=== PATIENT | female | born 1990 | race Caucasian/White ===

== ENCOUNTER 2017-12-01 14:38 | Outpatient (REF) | payer OTHER, SELFPAY ==
[2017-12-01 22:05] LABS: Anion Gap 7.5 mmol/L (3-11); CO2 31.5 mmol/L (21.0-32.0); Chloride 99 mmol/L (98-107); Cholesterol 170 mg/dL (50-200); HDL Cholesterol 66 mg/dL (40-60); LDL CHOLESTEROL 91 mg/dL (<100); Potassium 4.5 mmol/L (3.5-5.1); Sodium 138 mmol/L (136-145); Triglyceride 109 mg/dL (30-150)
[2017-12-02 17:30] LABS: Estradiol 187 pg/ml
== END 2017-12-01 14:58 ==
LOC: NCHCN 14:38
PROVIDERS: PCP Nurse Practitioner Family; Visit Provider Nurse Practitioner Family
DX: Z87.890 Personal history of sex reassignment (principal); Z13.220 Encounter for screening for lipoid disorders
CPT/HCPCS: 80051; 80061; 83721; 82670

== ENCOUNTER 2018-04-19 12:28 | Outpatient (REF) | payer OTHER, SELFPAY ==
[2018-04-19 22:32] LABS: ALT 14 U/L (12-78); AST 15 U/L (15-37); Albumin 3.9 g/dL (3.4-5.0); Alkaline Phosphatase 44 U/L (46-116); Anion Gap 6.9 mmol/L (3-11); BUN 11 mg/dL (7-18); Bilirubin, Total 0.4 mg/dL (0.2-1.0); CO2 32.1 mmol/L (21.0-32.0); CREATININE 0.91 mg/dL (0.55-1.02); Calcium 9.6 mg/dL (8.5-10.1); Chloride 101 mmol/L (98-107); Glucose 87 mg/dL (70-100); Potassium 4.7 mmol/L (3.5-5.1); Sodium 140 mmol/L (136-145); TSH 1.47 uIU/mL (0.358-3.74); Total Protein 7.5 g/dL (6.4-8.2)
[2018-04-20 19:40] LABS: Estradiol 241 pg/ml
[2018-04-21 09:36] LABS: Prolactin 17.9 ng/ml
[2018-04-22 12:08] LABS: Testosterone, Total <7.0 ng/dL (8-60)
== END 2018-04-19 12:48 ==
LOC: NCHCN 12:28
PROVIDERS: PCP Nurse Practitioner Family; Visit Provider Nurse Practitioner Family
DX: R63.4 Abnormal weight loss (principal); F41.8 Other specified anxiety disorders; Z87.890 Personal history of sex reassignment
CPT/HCPCS: 80053; 84403; 82670; 84146; 84443

== ENCOUNTER 2018-11-26 10:26 | Outpatient (REF) | payer OTHER, SELFPAY ==
[2018-11-26 21:31] LABS: Abs Immature Grans 0.02 k/cumm (0.0-0.09); Absolute Basophil Count 0.05 k/cumm (0.0-0.2); Absolute Eosinophil Count 0.32 k/cumm (0.0-0.7); Absolute Monocyte Count 0.44 k/cumm (0.11-0.7); Absolute Neutrophil Count 3.18 k/cumm (1.2-6.7); Basophils % 0.8; Eosinophils % 5.3; HGB 12.7 g/dL (12.0-15.5); Immature Grans % 0.3; Lymphocytes % 33.3; Mean Corp. HGB Concentration 33.4 g/dL (32.0-36.0); Mean Corpuscular Hemoglobin 28.7 pg (27.0-33.0); Monocytes % 7.3; Platelet Count 275 x1000/uL (130-400); RBC 4.42 m/cumm (4.00-5.20); RBC Distribution Width 12.1 % (11.7-14.6); White Blood Cell Count 6.01 k/cumm (4.4-10.8)
[2018-11-26 22:21] LABS: ALT 14 U/L (14-59); AST 11 U/L (15-37); Albumin 3.6 g/dL (3.4-5.0); Alkaline Phosphatase 38 U/L (46-116); Anion Gap 5.7 mmol/L (3-11); BUN 9 mg/dL (7-18); Bilirubin, Total 0.3 mg/dL (0.2-1.0); CO2 29.3 mmol/L (21.0-32.0); CREATININE 0.84 mg/dL (0.55-1.02); Calcium 8.6 mg/dL (8.5-10.1); Chloride 105 mmol/L (98-107); Glucose 77 mg/dL (70-100); Potassium 3.9 mmol/L (3.5-5.1); Sodium 140 mmol/L (136-145); TSH (W/Ref FT4) 1.46 uIU/mL (0.36-3.74); Total Protein 6.2 g/dL (6.4-8.2); Vitamin B12 616 pg/mL (193-986)
[2018-11-29 09:25] LABS: Vitamin D 25 Total 35.8 ng/ml (30-100)
== END 2018-11-26 10:46 ==
LOC: NCHCN 10:26
PROVIDERS: PCP Nurse Practitioner Family; Visit Provider Nurse Practitioner Family
DX: F41.8 Other specified anxiety disorders (principal); R45.851 Suicidal ideations; Z87.890 Personal history of sex reassignment; Z72.89 Other problems related to lifestyle
CPT/HCPCS: 80053; 82306; 82607; 84443; 85025

== ENCOUNTER 2019-04-28 14:02 | Outpatient (REF) | payer OTHER, SELFPAY ==
[2019-04-29 16:47] LABS: Estradiol 198 pg/mL (See Note)
[2019-05-03 07:58] LABS: Testosterone, Total <7.0 ng/dL (8-60)
== END 2019-04-28 14:22 ==
LOC: NCHCN 14:02
PROVIDERS: PCP Nurse Practitioner Family; Visit Provider Nurse Practitioner Family
DX: N18.6 End stage renal disease (principal); Z87.890 Personal history of sex reassignment
CPT/HCPCS: 84403; 82670

== ENCOUNTER 2019-10-04 17:28 | Outpatient (REF) | payer MEDICAID, SELFPAY ==
[2019-10-04 21:02] LABS: Anion Gap 8.8 mmol/L (3-11); BUN 13 mg/dL (7-18); CO2 27.2 mmol/L (21.0-32.0); Chloride 101 mmol/L (98-107); Glucose 102 mg/dL (74-106); Potassium 4.3 mmol/L (3.5-5.1); Sodium 137 mmol/L (136-145)
[2019-10-05 17:04] LABS: Estradiol 189 pg/mL (See Note)
[2019-10-07 15:53] LABS: Testosterone, Free 0.08 ng/dL (0.06-1.03); Testosterone, Total 7.7 ng/dL (8-60)
== END 2019-10-04 17:48 ==
LOC: NCHCN 17:28
PROVIDERS: PCP Nurse Practitioner Family; Visit Provider Nurse Practitioner Family
DX: Z87.890 Personal history of sex reassignment (principal)
CPT/HCPCS: 80048; 84402; 84403; 82670

== ENCOUNTER 2020-11-08 09:21 | Outpatient (REF) | payer OTHER, SELFPAY ==
[2020-11-08 17:38] LABS: Anion Gap 6.9 mmol/L (3-11); BUN 16 mg/dL (7-18); CO2 30.1 mmol/L (21.0-32.0); CREATININE 0.8 mg/dL (0.55-1.02); Chloride 105 mmol/L (98-107); Glucose 62 mg/dL (74-106); Potassium 4.1 mmol/L (3.5-5.1); Sodium 142 mmol/L (136-145)
[2020-11-09 16:56] LABS: Estradiol 210 pg/mL (See Note)
[2020-11-16 08:51] LABS: Testosterone, Total <7.0 ng/dL (8-60)
== END 2020-11-08 09:22 | disposition home or self-care (01) ==
LOC: NCHCN 09:21
PROVIDERS: PCP Nurse Practitioner Family; Referring Provider Nurse Practitioner Family; Visit Provider Nurse Practitioner Family
DX: F31.81 Bipolar II disorder (principal); Z87.890 Personal history of sex reassignment
CPT/HCPCS: 80048; 84402; 84403; 82670

== ENCOUNTER 2021-05-06 21:35 | Outpatient (REF) | payer OTHER, SELFPAY ==
[2021-05-06 22:06] LABS: Anion Gap 1.2 mmol/L (3-11); BUN 13 mg/dL (7-18); CO2 27.8 mmol/L (21.0-32.0); CREATININE 0.8 mg/dL (0.55-1.02); Calcium 8.7 mg/dL (8.5-10.1); Chloride 98 mmol/L (98-107); Glucose 85 mg/dL (74-106); Potassium 3.3 mmol/L (3.5-5.1); Sodium 127 mmol/L (136-145)
[2021-05-07 18:47] LABS: Estradiol 154 pg/mL (See Note)
[2021-05-10 15:56] LABS: Testosterone, Total <7.0 ng/dL (8-60)
== END 2021-05-06 21:36 | disposition home or self-care (01) ==
LOC: NCHCN 21:35
PROVIDERS: PCP Nurse Practitioner Family; Visit Provider Nurse Practitioner Family
DX: Z87.890 Personal history of sex reassignment (principal)
CPT/HCPCS: 80048; 84402; 84403; 82670

== ENCOUNTER 2021-07-18 19:24 | Outpatient (REF) | payer OTHER, SELFPAY ==
[2021-07-18 21:08] LABS: Anion Gap 5.1 mmol/L (3-11); BUN 18 mg/dL (7-18); CO2 28.9 mmol/L (21.0-32.0); CREATININE 0.8 mg/dL (0.55-1.02); Chloride 104 mmol/L (98-107); Glucose 69 mg/dL (74-106); Potassium 4.5 mmol/L (3.5-5.1); Sodium 138 mmol/L (136-145)
== END 2021-07-18 19:25 | disposition home or self-care (01) ==
LOC: NCHCN 19:24
PROVIDERS: PCP Nurse Practitioner Family; Visit Provider Nurse Practitioner Family
DX: Z86.39 Personal history of other endocrine, nutritional and metabolic disease (principal)
CPT/HCPCS: 80048

== ENCOUNTER 2022-09-01 10:58 | Outpatient (REF) | payer OTHER, SELFPAY ==
[2022-09-01 15:18] LABS: HCT 41.3 % (36.0-46.0); HGB 13.7 g/dL (11.2-15.7); MCH 28.5 pg (27.0-33.0); MCHC 33.2 % (32.0-36.0); MCV 86 fL (80-95); MPV 10.5 fL (8.0-11.0); Platelet Count 283 10^3/uL (130-400); RBC 4.81 10^6/uL (3.93-5.22); RDW-SD 37.8 fL; WBC 9.79 10^3/uL (4.4-10.8)
[2022-09-01 15:35] LABS: ALT 17 U/L (14-59); AST 24 U/L (15-37); Albumin 3.7 g/dL (3.4-5.0); Alkaline Phosphatase 37 U/L (46-116); Anion Gap 5.6 mmol/L (3-11); BUN 11 mg/dL (7-18); Bilirubin, Total 0.2 mg/dL (0.2-1.0); CO2 30.4 mmol/L (21.0-32.0); CREATININE 0.8 mg/dL (0.55-1.02); Calcium 8.7 mg/dL (8.5-10.1); Calculated LDL 90 mg/dL (<100); Chloride 105 mmol/L (98-107); Cholesterol 163 mg/dL (<200); Estimated GFR 99.09 (mL/min/1.73m2); Glucose 86 mg/dL (74-106); HDL Cholesterol 56 mg/dL (40-60); Potassium 4.6 mmol/L (3.5-5.1); Sodium 141 mmol/L (136-145); TSH 3.02 uIU/mL (0.36-3.74); Total Protein 6.8 g/dL (6.4-8.2); Triglyceride 85 mg/dL (<150)
[2022-09-01 22:29] LABS: Estradiol 168 pg/mL (See Note)
[2022-09-07 15:08] LABS: Testosterone, Free 0.24 ng/dL (<0.13-1.03); Testosterone, Total 17 ng/dL (8-60)
== END 2022-09-01 10:59 | disposition home or self-care (01) ==
LOC: NCHCN 10:58
PROVIDERS: PCP Nurse Practitioner Family; Visit Provider Nurse Practitioner Family
DX: Z02.89 Encounter for other administrative examinations (principal); Z13.0 Encounter for screening for diseases of the blood and blood-forming organs and certain disorders involving the immune mechanism; Z13.29 Encounter for screening for other suspected endocrine disorder
CPT/HCPCS: 80053; 80061; 84402; 84403; 85027; 82670; 84443

== ENCOUNTER 2022-09-29 11:35 | Outpatient (REF) | payer OTHER, SELFPAY ==
[2022-09-29 14:53] LABS: Abs Immature Grans 0.04 10^3/uL (0.0-0.06); Absolute Basophil Count 0.07 10^3/uL (0.0-0.2); Absolute Eosinophil Count 0.47 10^3/uL (0.0-0.7); Absolute Lymphocyte Count 2.55 10^3/uL (1.2-3.4); Absolute Monocyte Count 0.62 10^3/uL (0.1-0.8); Absolute Neutrophil Count 5.64 10^3/uL (1.2-6.7); Basophils % 0.7; HCT 38.4 % (36.0-46.0); HGB 12.9 g/dL (11.2-15.7); Immature Grans % 0.4; Lymphocytes % 27.2; MCH 28.8 pg (27.0-33.0); MCHC 33.6 % (32.0-36.0); MCV 86 fL (80-95); MPV 10.4 fL (8.0-11.0); Monocytes % 6.6; Neutrophils % 60.1; Platelet Count 315 10^3/uL (130-400); RBC 4.48 10^6/uL (3.93-5.22); RDW 11.8 % (11.7-14.6); RDW-SD 36.7 fL; WBC 9.39 10^3/uL (4.4-10.8)
[2022-09-29 15:39] LABS: Lithium 0.3 mmol/l (0.6-1.2)
[2022-09-29 15:50] LABS: ALT 16 U/L (14-59); AST 19 U/L (15-37); Albumin 3.9 g/dL (3.4-5.0); Alkaline Phosphatase 37 U/L (46-116); Anion Gap 4.7 mmol/L (3-11); BUN 10 mg/dL (7-18); Bilirubin, Total 0.3 mg/dL (0.2-1.0); CO2 31.3 mmol/L (21.0-32.0); CREATININE 0.8 mg/dL (0.55-1.02); Calcium 9.5 mg/dL (8.5-10.1); Chloride 104 mmol/L (98-107); Estimated GFR 99.09 (mL/min/1.73m2); FREE T4 0.98 ng/dL (0.76-1.46); Glucose 90 mg/dL (74-106); Potassium 4.2 mmol/L (3.5-5.1); Sodium 140 mmol/L (136-145); TSH 4.04 uIU/mL (0.36-3.74); Total Protein 6.7 g/dL (6.4-8.2)
== END 2022-09-29 11:36 | disposition home or self-care (01) ==
LOC: LBN 11:35
PROVIDERS: PCP Nurse Practitioner Family; Visit Provider Nurse Practitioner Family
DX: F31.81 Bipolar II disorder (principal); F41.1 Generalized anxiety disorder; Z79.899 Other long term (current) drug therapy; Z51.81 Encounter for therapeutic drug level monitoring
CPT/HCPCS: 80053; 80178; 84439; 84443; 85025

== ENCOUNTER 2023-03-09 11:12 | Outpatient (REF) | payer OTHER, SELFPAY ==
[2023-03-09 15:14] LABS: Lithium 0.3 mmol/l (0.6-1.2)
[2023-03-09 15:23] LABS: ALT 24 U/L (14-59); AST 19 U/L (15-37); Albumin 4.3 g/dL (3.4-5.0); Alkaline Phosphatase 39 U/L (46-116); Anion Gap 7.9 mmol/L (3-11); BUN 10 mg/dL (7-18); Bilirubin, Total 0.3 mg/dL (0.2-1.0); CO2 28.1 mmol/L (21.0-32.0); Calcium 9.7 mg/dL (8.5-10.1); Chloride 102 mmol/L (98-107); Estimated GFR 75.34 (mL/min/1.73m2); Glucose 92 mg/dL (74-106); Sodium 138 mmol/L (136-145); TSH (W/Ref FT4) 3.45 uIU/mL (0.36-3.74); Total Protein 7.9 g/dL (6.4-8.2)
[2023-03-09 23:59] LABS: Estradiol 158 pg/mL (See Note)
[2023-03-15 17:48] LABS: Testosterone, Total <7.0 ng/dL (8-60)
== END 2023-03-09 11:13 | disposition home or self-care (01) ==
LOC: NCHCN 11:12
PROVIDERS: PCP Nurse Practitioner Family; Visit Provider Nurse Practitioner Family
DX: F31.81 Bipolar II disorder (principal)
CPT/HCPCS: 80053; 84403; 80178; 82670; 84443

== ENCOUNTER 2024-06-09 07:50 | Outpatient (REF) | payer OTHER, SELFPAY ==
[2024-06-09 14:44] LABS: HCT 41.1 % (36.0-46.0); HGB 13.9 g/dL (11.2-15.7); MCH 29.4 pg (27.0-33.0); MCHC 33.8 % (32.0-36.0); MCV 87 fL (80-95); MPV 10.3 fL (8.0-11.0); Platelet Count 293 10^3/uL (130-400); RBC 4.72 10^6/uL (3.93-5.22); RDW 11.9 % (11.7-14.6); WBC 10.99 10^3/uL (4.4-10.8)
[2024-06-09 15:45] LABS: BUN 12 mg/dL (7-18); CREATININE 0.8 mg/dL (0.55-1.02); Calcium 9.4 mg/dL (8.5-10.1); Calculated LDL 75 mg/dL (<100); Chloride 106 mmol/L (98-107); Cholesterol 168 mg/dL (<200); Estimated GFR 97.87 (mL/min/1.73m2); Glucose 89 mg/dL (74-106); HDL Cholesterol 72 mg/dL (>or=50); Sodium 141 mmol/L (136-145); TSH 2.26 uIU/mL (0.36-3.74); Triglyceride 106 mg/dL (<150)
[2024-06-09 23:17] LABS: Estradiol 192 pg/mL (See Note)
[2024-06-17 12:28] LABS: Testosterone, Total <7.0 ng/dL (8-60)
== END 2024-06-09 07:51 | disposition home or self-care (01) ==
LOC: NCHCN 07:50
PROVIDERS: PCP Nurse Practitioner Family; Visit Provider Nurse Practitioner Family
DX: Z00.00 Encounter for general adult medical examination without abnormal findings (principal); F64.9 Gender identity disorder, unspecified
CPT/HCPCS: 80048; 80061; 84403; 85027; 82670; 84443